=== PATIENT | female | born 1945 | race Caucasian/White ===

== ENCOUNTER 2022-10-09 17:43 | Inpatient (IN) | payer MEDICARE, MEDICAID ==
[2022-10-09] MEDS ORDERED: HumaLOG 300 UNITS/3 ML VIAL SC PRN (21:16)
[2022-10-09] MEDS ORDERED: Dextrose 50% Abboject 50 ML SYRINGE SLOW IVP PRN (21:16)
[2022-10-09] MEDS ORDERED: Glucagon 1 MG/ML KIT IM PRN (21:16)
[2022-10-09] MEDS ORDERED: traMADol HCl 50 MG TAB PO PRN (21:31)
[2022-10-09 22:42] LABS: Bilirubin Negative (Negative); Blood, Urine Trace (Negative); Clarity Cloudy (Clear); Glucose, Urine (Dipstick) Negative (Negative); Ketone, Urine Trace mg/dL (Negative); Leukocyte Large (Negative); Nitrite Positive (Negative); Protein, Urine (Dipstick) Trace mg/dL (Neg-Trace); Urobilinogen 0.2 mg/dL (Less than 2)
[2022-10-09 22:48] LABS: RBC/HPF 0-3 HPF (0-3); WBC/HPF Greater than 50 HPF (0-3)
[2022-10-09 22:49] LABS: Bacteria/HPF 3+ HPF (None Seen); Yeast-Budding 1+ HPF (None Seen); Yeast-Hyphae 2+ HPF (None Seen)
[2022-10-10 05:41] LABS: #Basophils 0.1 thou/uL (0.0-0.2); #Eosinphils 0.3 thou/uL (0.0-0.7); #Monocytes 0.9 thou/uL (0.11-0.59); #Neutrophils 5.5 thou/uL (1.40-6.50); %Basophils 1.5 % (0.0-1.0); %Eosinophils 3.3 % (0.0-10.0); %Lymphocytes 30.6 % (21.0-51.0); %Monocytes 8.7 % (0.0-10.0); %Neutrophils 55.9 % (42.0-75.0); Hemoglobin 11.5 g/dL (12.0-16.0); Mean Corpuscular HGB CONC 32.3 g/dL (32.0-36.0); Mean Corpuscular Hemoglobin 27.1 pg (27.0-31.0); Mean Corpuscular Volume 83.6 fl (78.0-98.0); Mean Platelet Volume 7.4 fL (7.4-10.4); Platelet Count 403 10x3/uL (130-400); RBC Distribution Width 16.1 % (11.5-14.5); Red Blood Cell (RBC) Count 4.23 mill/uL (4.20-5.40); White Blood Cell (WBC) Count 9.9 10x3/uL (4.8-10.8)
[2022-10-10 06:01] LABS: ALT (SGPT) 11 U/L (8-55); AST (SGOT) 16 U/L (5-34); Alkaline Phosphatase 65 U/L (40-110); Anion Gap 12 mmol/L (10-20); BUN (Urea Nitrogen) 6 mg/dL (9.8-20.1); Bilirubin, Total 0.6 mg/dL (0.2-1.2); Calc. Creatinine Clearance 66 mL/min (70-130); Calcium 8.6 mg/dL (7.8-10.44); Carbon Dioxide 28 mmol/L (23-31); Chloride 99 mmol/L (98-107); Estimated GFR 91; Globulin 2.1 g/dL (2.4-3.5); Glucose 119 mg/dL (83-110); Potassium 3.9 mmol/L (3.5-5.1); Protein, Total 5.1 g/dL (5.8-8.1); Sodium 135 mmol/L (136-145)
[2022-10-10] MEDS: metFORMIN 500 MG TAB PO SCH ×2 (08:25→21:58)
[2022-10-10] MEDS: Saccharomyces boulardii 250 MG CAP PO SCH (08:25)
[2022-10-10] MEDS: Potassium Chloride 20 MEQ TAB PO SCH (08:25)
[2022-10-10] MEDS: Lisinopril 10 MG TAB PO SCH (08:25)
[2022-10-10] MEDS: Citalopram 20 MG TAB PO SCH (08:26)
[2022-10-10] MEDS: Lantus 1000 UNITS/10 ML VIAL SC SCH (08:26)
[2022-10-10] MEDS: Mupirocin 2% Ointment 22 GM Tube TOP SCH ×3 (08:26→21:58)
[2022-10-10] MEDS: Sulfameth/Trimethoprim DS 800-160mg TAB PO SCH ×2 (08:26→21:58)
[2022-10-10] MEDS: Aspirin 81 mg Enteric Coated Tablet PO SCH (08:26)
[2022-10-10] MEDS: Spironolactone 25 MG TAB PO SCH (08:30)
[2022-10-10] MEDS: Atorvastatin Calcium 40 MG TAB PO SCH (21:58)
[2022-10-10] MEDS: QUEtiapine 25 MG TAB PO SCH (21:58)
[2022-10-11] MEDS: Lisinopril 10 MG TAB PO SCH (09:25)
[2022-10-11] MEDS: Aspirin 81 mg Enteric Coated Tablet PO SCH (09:25)
[2022-10-11] MEDS: Saccharomyces boulardii 250 MG CAP PO SCH (09:25)
[2022-10-11] MEDS: Spironolactone 25 MG TAB PO SCH (09:25)
[2022-10-11] MEDS: metFORMIN 500 MG TAB PO SCH ×2 (09:25→21:09)
[2022-10-11] MEDS: Sulfameth/Trimethoprim DS 800-160mg TAB PO SCH ×2 (09:26→21:09)
[2022-10-11] MEDS: Potassium Chloride 20 MEQ TAB PO SCH (09:26)
[2022-10-11] MEDS: Citalopram 20 MG TAB PO SCH (09:26)
[2022-10-11] MEDS: Lantus 1000 UNITS/10 ML VIAL SC SCH (09:27)
[2022-10-11] MEDS: Mupirocin 2% Ointment 22 GM Tube TOP SCH ×3 (09:27→21:10)
[2022-10-11] MEDS ORDERED: Lantiseptic Ointment 130 GM JAR TOP PRN (18:14)
[2022-10-11] MEDS: QUEtiapine 25 MG TAB PO SCH (21:09)
[2022-10-11] MEDS: Lantiseptic Ointment 130 GM JAR TOP SCH (21:09)
[2022-10-11] MEDS: Atorvastatin Calcium 40 MG TAB PO SCH (21:09)
[2022-10-12] MEDS: Acetaminophen 500 MG TAB PO PRN (07:56)
[2022-10-12] MEDS: Aspirin 81 mg Enteric Coated Tablet PO SCH (09:33)
[2022-10-12] MEDS: Sulfameth/Trimethoprim DS 800-160mg TAB PO SCH (09:33)
[2022-10-12] MEDS: metFORMIN 500 MG TAB PO SCH ×2 (09:33→20:48)
[2022-10-12] MEDS: Saccharomyces boulardii 250 MG CAP PO SCH (09:35)
[2022-10-12] MEDS: Spironolactone 25 MG TAB PO SCH (09:35)
[2022-10-12] MEDS: Citalopram 20 MG TAB PO SCH (09:35)
[2022-10-12] MEDS: Potassium Chloride 20 MEQ TAB PO SCH (09:36)
[2022-10-12] MEDS: Lisinopril 10 MG TAB PO SCH (09:36)
[2022-10-12] MEDS: Mupirocin 2% Ointment 22 GM Tube TOP SCH ×3 (09:38→20:48)
[2022-10-12] MEDS: Lantiseptic Ointment 130 GM JAR TOP SCH ×2 (09:38→20:49)
[2022-10-12] MEDS: Lantus 1000 UNITS/10 ML VIAL SC SCH (10:16)
[2022-10-12] MEDS ORDERED: Meropenem 1 GM in Sodium Chloride 0.9% 100 ML IVPB SCH (13:30)
[2022-10-12] MEDS: Megestrol Acetate 40 MG TAB PO SCH (20:45)
[2022-10-12] MEDS: QUEtiapine 25 MG TAB PO SCH (20:46)
[2022-10-12] MEDS: Atorvastatin Calcium 40 MG TAB PO SCH (20:47)
[2022-10-12] MEDS: Meropenem 1 GM in Sodium Chloride 0.9% 100 ML IVPB SCH (21:25)
[2022-10-13] MEDS: Meropenem 1 GM in Sodium Chloride 0.9% 100 ML IVPB SCH ×3 (05:45→21:21)
[2022-10-13] MEDS: metFORMIN 500 MG TAB PO SCH ×2 (08:24→21:20)
[2022-10-13] MEDS: Lisinopril 10 MG TAB PO SCH (08:24)
[2022-10-13] MEDS: Spironolactone 25 MG TAB PO SCH (08:24)
[2022-10-13] MEDS: Potassium Chloride 20 MEQ TAB PO SCH (08:24)
[2022-10-13] MEDS: Aspirin 81 mg Enteric Coated Tablet PO SCH (08:25)
[2022-10-13] MEDS: Megestrol Acetate 40 MG TAB PO SCH ×2 (08:25→21:20)
[2022-10-13] MEDS: Saccharomyces boulardii 250 MG CAP PO SCH (08:25)
[2022-10-13] MEDS: Citalopram 20 MG TAB PO SCH (08:25)
[2022-10-13] MEDS: Lantiseptic Ointment 130 GM JAR TOP SCH ×2 (08:25→21:24)
[2022-10-13] MEDS: Mupirocin 2% Ointment 22 GM Tube TOP SCH ×3 (08:26→21:24)
[2022-10-13] MEDS: Atorvastatin Calcium 40 MG TAB PO SCH (21:20)
[2022-10-13] MEDS: QUEtiapine 25 MG TAB PO SCH (21:20)
[2022-10-14] MEDS: Meropenem 1 GM in Sodium Chloride 0.9% 100 ML IVPB SCH ×3 (05:18→21:41)
[2022-10-14] MEDS: Megestrol Acetate 40 MG TAB PO SCH ×2 (08:12→20:12)
[2022-10-14] MEDS: metFORMIN 500 MG TAB PO SCH ×2 (08:12→17:01)
[2022-10-14] MEDS: Potassium Chloride 20 MEQ TAB PO SCH (08:13)
[2022-10-14] MEDS: Lisinopril 10 MG TAB PO SCH (08:13)
[2022-10-14] MEDS: Citalopram 20 MG TAB PO SCH (08:13)
[2022-10-14] MEDS: Spironolactone 25 MG TAB PO SCH (08:13)
[2022-10-14] MEDS: Mupirocin 2% Ointment 22 GM Tube TOP SCH ×3 (08:14→20:13)
[2022-10-14] MEDS: Aspirin 81 mg Enteric Coated Tablet PO SCH (08:14)
[2022-10-14] MEDS: Lantiseptic Ointment 130 GM JAR TOP SCH ×2 (08:14→20:13)
[2022-10-14] MEDS: Saccharomyces boulardii 250 MG CAP PO SCH (08:15)
[2022-10-14] MEDS: QUEtiapine 25 MG TAB PO SCH (20:12)
[2022-10-14] MEDS: Atorvastatin Calcium 40 MG TAB PO SCH (20:12)
[2022-10-15] MEDS: Meropenem 1 GM in Sodium Chloride 0.9% 100 ML IVPB SCH ×3 (05:27→21:42)
[2022-10-15] MEDS: Lisinopril 10 MG TAB PO SCH (08:15)
[2022-10-15] MEDS: Potassium Chloride 20 MEQ TAB PO SCH (08:15)
[2022-10-15] MEDS: Aspirin 81 mg Enteric Coated Tablet PO SCH (08:15)
[2022-10-15] MEDS: metFORMIN 500 MG TAB PO SCH ×2 (08:15→17:04)
[2022-10-15] MEDS: Saccharomyces boulardii 250 MG CAP PO SCH (08:15)
[2022-10-15] MEDS: Citalopram 20 MG TAB PO SCH (08:15)
[2022-10-15] MEDS: Spironolactone 25 MG TAB PO SCH (08:16)
[2022-10-15] MEDS: Lantiseptic Ointment 130 GM JAR TOP SCH ×2 (08:16→19:25)
[2022-10-15] MEDS: Megestrol Acetate 40 MG TAB PO SCH ×2 (08:16→19:24)
[2022-10-15] MEDS: Mupirocin 2% Ointment 22 GM Tube TOP SCH ×3 (08:16→19:25)
[2022-10-15] MEDS: QUEtiapine 25 MG TAB PO SCH (19:24)
[2022-10-15] MEDS: Atorvastatin Calcium 40 MG TAB PO SCH (19:24)
[2022-10-16] MEDS: Meropenem 1 GM in Sodium Chloride 0.9% 100 ML IVPB SCH ×3 (05:21→22:21)
[2022-10-16] MEDS: Citalopram 20 MG TAB PO SCH (08:08)
[2022-10-16] MEDS: Aspirin 81 mg Enteric Coated Tablet PO SCH (08:09)
[2022-10-16] MEDS: Saccharomyces boulardii 250 MG CAP PO SCH (08:09)
[2022-10-16] MEDS: Potassium Chloride 20 MEQ TAB PO SCH (08:09)
[2022-10-16] MEDS: Lisinopril 10 MG TAB PO SCH (08:09)
[2022-10-16] MEDS: Megestrol Acetate 40 MG TAB PO SCH ×2 (08:09→21:41)
[2022-10-16] MEDS: metFORMIN 500 MG TAB PO SCH ×2 (08:09→21:42)
[2022-10-16] MEDS: Spironolactone 25 MG TAB PO SCH (08:09)
[2022-10-16] MEDS: Lantiseptic Ointment 130 GM JAR TOP SCH ×2 (08:09→21:44)
[2022-10-16] MEDS: Mupirocin 2% Ointment 22 GM Tube TOP SCH ×3 (08:10→21:44)
[2022-10-16] MEDS: Ondansetron ODT 4 MG TAB PO PRN (10:38)
[2022-10-16] MEDS: QUEtiapine 25 MG TAB PO SCH (21:41)
[2022-10-16] MEDS: Atorvastatin Calcium 40 MG TAB PO SCH (21:41)
[2022-10-17] MEDS: Meropenem 1 GM in Sodium Chloride 0.9% 100 ML IVPB SCH ×3 (05:37→21:22)
[2022-10-17] MEDS: Lisinopril 10 MG TAB PO SCH (10:04)
[2022-10-17] MEDS: Megestrol Acetate 40 MG TAB PO SCH ×2 (10:04→21:18)
[2022-10-17] MEDS: Spironolactone 25 MG TAB PO SCH (10:05)
[2022-10-17] MEDS: Saccharomyces boulardii 250 MG CAP PO SCH (10:05)
[2022-10-17] MEDS: metFORMIN 500 MG TAB PO SCH ×3 (10:05→21:34)
[2022-10-17] MEDS: Potassium Chloride 20 MEQ TAB PO SCH (10:06)
[2022-10-17] MEDS: Citalopram 20 MG TAB PO SCH (10:06)
[2022-10-17] MEDS: Lantiseptic Ointment 130 GM JAR TOP SCH ×2 (10:07→21:18)
[2022-10-17] MEDS: Aspirin 81 mg Enteric Coated Tablet PO SCH (10:07)
[2022-10-17] MEDS: Mupirocin 2% Ointment 22 GM Tube TOP SCH ×3 (10:07→21:18)
[2022-10-17] MEDS: Acetaminophen 500 MG TAB PO PRN (10:08)
[2022-10-17] MEDS: Ondansetron ODT 4 MG TAB PO PRN (14:52)
[2022-10-17] MEDS: Atorvastatin Calcium 40 MG TAB PO SCH (21:18)
[2022-10-17] MEDS: QUEtiapine 25 MG TAB PO SCH (21:18)
[2022-10-18] MEDS: Meropenem 1 GM in Sodium Chloride 0.9% 100 ML IVPB SCH (05:26)
[2022-10-18 05:31] LABS: Hemoglobin 11.5 g/dL (12.0-16.0); Platelet Count 396 10x3/uL (130-400)
[2022-10-18] MEDS: metFORMIN 500 MG TAB PO SCH ×3 (08:12→21:58)
[2022-10-18] MEDS: Lisinopril 10 MG TAB PO SCH ×2 (08:12→08:26)
[2022-10-18] MEDS: Saccharomyces boulardii 250 MG CAP PO SCH ×2 (08:12→10:24)
[2022-10-18] MEDS: Potassium Chloride 20 MEQ TAB PO SCH ×2 (08:12→10:23)
[2022-10-18] MEDS: Megestrol Acetate 40 MG TAB PO SCH ×2 (08:14→09:29)
[2022-10-18] MEDS: Aspirin 81 mg Enteric Coated Tablet PO SCH (08:14)
[2022-10-18] MEDS: Citalopram 20 MG TAB PO SCH (08:14)
[2022-10-18] MEDS: Spironolactone 25 MG TAB PO SCH (08:14)
[2022-10-18] MEDS: Lantiseptic Ointment 130 GM JAR TOP SCH ×2 (08:16→21:57)
[2022-10-18] MEDS: Mupirocin 2% Ointment 22 GM Tube TOP SCH ×3 (08:16→22:02)
[2022-10-18] MEDS ORDERED: Loperamide HCl 2 MG CAP PO SCH (10:15)
[2022-10-18] MEDS ORDERED: Megestrol Acetate 400 MG/10 ML UDCUP PO SCH (10:15)
[2022-10-18] MEDS: Ondansetron ODT 4 MG TAB PO PRN (10:25)
[2022-10-18] MEDS: QUEtiapine 25 MG TAB PO SCH (21:58)
[2022-10-18] MEDS: Atorvastatin Calcium 40 MG TAB PO SCH (21:58)
[2022-10-18] MEDS: Megestrol Acetate 400 MG/10 ML UDCUP PO SCH (22:01)
[2022-10-19] MEDS: Aspirin 81 mg Enteric Coated Tablet PO SCH (08:17)
[2022-10-19] MEDS: Megestrol Acetate 400 MG/10 ML UDCUP PO SCH ×2 (08:17→20:33)
[2022-10-19] MEDS: metFORMIN 500 MG TAB PO SCH ×2 (08:17→20:33)
[2022-10-19] MEDS: Spironolactone 25 MG TAB PO SCH (08:17)
[2022-10-19] MEDS: Potassium Chloride 20 MEQ TAB PO SCH (08:17)
[2022-10-19] MEDS: Lisinopril 10 MG TAB PO SCH (08:18)
[2022-10-19] MEDS: Citalopram 20 MG TAB PO SCH (08:19)
[2022-10-19] MEDS: Ondansetron ODT 4 MG TAB PO PRN (08:19)
[2022-10-19] MEDS: Mupirocin 2% Ointment 22 GM Tube TOP SCH ×3 (08:20→20:38)
[2022-10-19] MEDS: Lantiseptic Ointment 130 GM JAR TOP SCH ×2 (08:22→20:34)
[2022-10-19] MEDS: Saccharomyces boulardii 250 MG CAP PO SCH (08:34)
[2022-10-19] MEDS: Atorvastatin Calcium 40 MG TAB PO SCH (20:34)
[2022-10-19] MEDS: QUEtiapine 25 MG TAB PO SCH (20:34)
[2022-10-20] MEDS: Saccharomyces boulardii 250 MG CAP PO SCH (08:48)
[2022-10-20] MEDS: Megestrol Acetate 400 MG/10 ML UDCUP PO SCH ×2 (08:48→20:42)
[2022-10-20] MEDS: Potassium Chloride 20 MEQ TAB PO SCH (08:49)
[2022-10-20] MEDS: Spironolactone 25 MG TAB PO SCH (08:50)
[2022-10-20] MEDS: metFORMIN 500 MG TAB PO SCH ×2 (08:55→20:42)
[2022-10-20] MEDS: Ondansetron ODT 4 MG TAB PO PRN (08:55)
[2022-10-20] MEDS: Aspirin 81 mg Enteric Coated Tablet PO SCH (08:56)
[2022-10-20] MEDS: Citalopram 20 MG TAB PO SCH (08:57)
[2022-10-20] MEDS: Mupirocin 2% Ointment 22 GM Tube TOP SCH ×3 (08:58→20:44)
[2022-10-20] MEDS: Lantiseptic Ointment 130 GM JAR TOP SCH ×2 (08:58→20:43)
[2022-10-20] MEDS: Lisinopril 10 MG TAB PO SCH (08:59)
[2022-10-20] MEDS: QUEtiapine 25 MG TAB PO SCH (20:42)
[2022-10-20] MEDS: Atorvastatin Calcium 40 MG TAB PO SCH (20:42)
[2022-10-21] MEDS: Citalopram 20 MG TAB PO SCH (09:12)
[2022-10-21] MEDS: Spironolactone 25 MG TAB PO SCH (09:13)
[2022-10-21] MEDS: Lisinopril 10 MG TAB PO SCH (09:13)
[2022-10-21] MEDS: metFORMIN 500 MG TAB PO SCH ×2 (09:13→20:43)
[2022-10-21] MEDS: Saccharomyces boulardii 250 MG CAP PO SCH (09:13)
[2022-10-21] MEDS: Potassium Chloride 20 MEQ TAB PO SCH (09:13)
[2022-10-21] MEDS: Aspirin 81 mg Enteric Coated Tablet PO SCH (09:13)
[2022-10-21] MEDS: Mupirocin 2% Ointment 22 GM Tube TOP SCH ×3 (09:14→20:44)
[2022-10-21] MEDS: Megestrol Acetate 400 MG/10 ML UDCUP PO SCH ×2 (09:14→20:43)
[2022-10-21] MEDS: Lantiseptic Ointment 130 GM JAR TOP SCH ×2 (09:14→20:45)
[2022-10-21] MEDS: Atorvastatin Calcium 40 MG TAB PO SCH (20:43)
[2022-10-21] MEDS: QUEtiapine 25 MG TAB PO SCH (20:43)
[2022-10-22] MEDS: Saccharomyces boulardii 250 MG CAP PO SCH (09:22)
[2022-10-22] MEDS: metFORMIN 500 MG TAB PO SCH ×2 (09:22→20:26)
[2022-10-22] MEDS: Megestrol Acetate 400 MG/10 ML UDCUP PO SCH ×2 (09:22→20:25)
[2022-10-22] MEDS: Aspirin 81 mg Enteric Coated Tablet PO SCH (09:22)
[2022-10-22] MEDS: Spironolactone 25 MG TAB PO SCH (09:22)
[2022-10-22] MEDS: Citalopram 20 MG TAB PO SCH (09:22)
[2022-10-22] MEDS: Acetaminophen 500 MG TAB PO PRN (09:23)
[2022-10-22] MEDS: Potassium Chloride 20 MEQ TAB PO SCH (09:23)
[2022-10-22] MEDS: Lisinopril 10 MG TAB PO SCH (09:23)
[2022-10-22] MEDS: Mupirocin 2% Ointment 22 GM Tube TOP SCH ×3 (09:24→20:27)
[2022-10-22] MEDS: Lantiseptic Ointment 130 GM JAR TOP SCH ×2 (09:31→20:27)
[2022-10-22] MEDS: QUEtiapine 25 MG TAB PO SCH (20:26)
[2022-10-22] MEDS: Atorvastatin Calcium 40 MG TAB PO SCH (20:26)
[2022-10-23] MEDS: Aspirin 81 mg Enteric Coated Tablet PO SCH (09:07)
[2022-10-23] MEDS: Citalopram 20 MG TAB PO SCH (09:07)
[2022-10-23] MEDS: Spironolactone 25 MG TAB PO SCH (09:07)
[2022-10-23] MEDS: Megestrol Acetate 400 MG/10 ML UDCUP PO SCH ×2 (09:07→20:51)
[2022-10-23] MEDS: Lantiseptic Ointment 130 GM JAR TOP SCH ×2 (09:08→20:52)
[2022-10-23] MEDS: Saccharomyces boulardii 250 MG CAP PO SCH (09:08)
[2022-10-23] MEDS: Potassium Chloride 20 MEQ TAB PO SCH (09:08)
[2022-10-23] MEDS: metFORMIN 500 MG TAB PO SCH ×2 (09:08→20:51)
[2022-10-23] MEDS: Lisinopril 10 MG TAB PO SCH (09:10)
[2022-10-23] MEDS: Mupirocin 2% Ointment 22 GM Tube TOP SCH (09:10)
[2022-10-23] MEDS ORDERED: Loperamide HCl 2 MG CAP PO PRN (13:10)
[2022-10-23] MEDS: QUEtiapine 25 MG TAB PO SCH (20:51)
[2022-10-23] MEDS: Atorvastatin Calcium 40 MG TAB PO SCH (20:51)
[2022-10-24] MEDS: Spironolactone 25 MG TAB PO SCH (08:10)
[2022-10-24] MEDS: Potassium Chloride 20 MEQ TAB PO SCH (08:11)
[2022-10-24] MEDS: Aspirin 81 mg Enteric Coated Tablet PO SCH (08:11)
[2022-10-24] MEDS: Saccharomyces boulardii 250 MG CAP PO SCH (08:11)
[2022-10-24] MEDS: metFORMIN 500 MG TAB PO SCH ×2 (08:11→20:49)
[2022-10-24] MEDS: Megestrol Acetate 400 MG/10 ML UDCUP PO SCH ×2 (08:11→20:49)
[2022-10-24] MEDS: Citalopram 20 MG TAB PO SCH (08:11)
[2022-10-24] MEDS: Lisinopril 10 MG TAB PO SCH (08:12)
[2022-10-24] MEDS: Lantiseptic Ointment 130 GM JAR TOP SCH ×2 (08:12→20:50)
[2022-10-24] MEDS: QUEtiapine 25 MG TAB PO SCH (20:49)
[2022-10-24] MEDS: Atorvastatin Calcium 40 MG TAB PO SCH (20:49)
[2022-10-25] MEDS: Megestrol Acetate 400 MG/10 ML UDCUP PO SCH ×2 (10:03→20:40)
[2022-10-25] MEDS: Aspirin 81 mg Enteric Coated Tablet PO SCH (10:03)
[2022-10-25] MEDS: Potassium Chloride 20 MEQ TAB PO SCH (10:03)
[2022-10-25] MEDS: metFORMIN 500 MG TAB PO SCH ×2 (10:03→20:40)
[2022-10-25] MEDS: Spironolactone 25 MG TAB PO SCH (10:04)
[2022-10-25] MEDS: Lisinopril 10 MG TAB PO SCH (10:04)
[2022-10-25] MEDS: Saccharomyces boulardii 250 MG CAP PO SCH (10:04)
[2022-10-25] MEDS: Citalopram 20 MG TAB PO SCH (10:04)
[2022-10-25] MEDS: Lantiseptic Ointment 130 GM JAR TOP SCH ×2 (10:05→20:40)
[2022-10-25] MEDS: QUEtiapine 25 MG TAB PO SCH (20:40)
[2022-10-25] MEDS: Atorvastatin Calcium 40 MG TAB PO SCH (20:40)
[2022-10-26 09:08] VITALS: BMI 20.1
[2022-10-26] MEDS: Aspirin 81 mg Enteric Coated Tablet PO SCH (09:55)
[2022-10-26] MEDS: Megestrol Acetate 400 MG/10 ML UDCUP PO SCH ×2 (09:56→20:52)
[2022-10-26] MEDS: Saccharomyces boulardii 250 MG CAP PO SCH (09:56)
[2022-10-26] MEDS: Potassium Chloride 20 MEQ TAB PO SCH (09:56)
[2022-10-26] MEDS: metFORMIN 500 MG TAB PO SCH ×2 (09:56→20:52)
[2022-10-26] MEDS: Lantiseptic Ointment 130 GM JAR TOP SCH ×2 (09:57→20:52)
[2022-10-26] MEDS: Spironolactone 25 MG TAB PO SCH (10:02)
[2022-10-26] MEDS: Citalopram 20 MG TAB PO SCH (10:02)
[2022-10-26] MEDS: Lisinopril 10 MG TAB PO SCH (10:03)
[2022-10-26] MEDS: QUEtiapine 25 MG TAB PO SCH (20:52)
[2022-10-26] MEDS: Atorvastatin Calcium 40 MG TAB PO SCH (20:52)
[2022-10-27 05:26] LABS: Hemoglobin 10.4 g/dL (12.0-16.0); Platelet Count 440 10x3/uL (130-400)
[2022-10-27 07:20] VITALS: TEMP 98
[2022-10-27] MEDS: Citalopram 20 MG TAB PO SCH (08:29)
[2022-10-27] MEDS: Aspirin 81 mg Enteric Coated Tablet PO SCH (08:29)
[2022-10-27] MEDS: Potassium Chloride 20 MEQ TAB PO SCH (08:30)
[2022-10-27] MEDS: Spironolactone 25 MG TAB PO SCH (08:30)
[2022-10-27] MEDS: Saccharomyces boulardii 250 MG CAP PO SCH (08:30)
[2022-10-27] MEDS: Lisinopril 10 MG TAB PO SCH (08:31)
[2022-10-27] MEDS: Megestrol Acetate 400 MG/10 ML UDCUP PO SCH (08:31)
[2022-10-27] MEDS: metFORMIN 500 MG TAB PO SCH (08:33)
[2022-10-27] MEDS: Lantiseptic Ointment 130 GM JAR TOP SCH (08:34)
[2022-10-27 08:38] VITALS: BP 124/80
== END 2022-10-27 14:15 | DRG 948 ==
LOC: MADMS 20:33
PROVIDERS: ADMIT Family Medicine; ATTEND Family Medicine
DX: R53.1 Weakness (principal); E44.0 Moderate protein-calorie malnutrition; T83.510A Infection and inflammatory reaction due to cystostomy catheter, initial encounter; N39.0 Urinary tract infection, site not specified; I10 Essential (primary) hypertension; F03.90 Unspecified dementia, unspecified severity, without behavioral disturbance, psychotic disturbance, mood disturbance, and anxiety; Z96.659 Presence of unspecified artificial knee joint; D12.8 Benign neoplasm of rectum; N20.0 Calculus of kidney; E87.6 Hypokalemia; Y83.8 Other surgical procedures as the cause of abnormal reaction of the patient, or of later complication, without mention of misadventure at the time of the procedure; E11.649 Type 2 diabetes mellitus with hypoglycemia without coma; K52.9 Noninfective gastroenteritis and colitis, unspecified; Z98.51 Tubal ligation status
CPT/HCPCS: 36415; 36416; 80053; 81001; 82565; 85014; 85018; 85025; 85049; 87077; 87086; 87186; J1650; J1815; J2185; J3490; Q0162; S0179

== ENCOUNTER 2023-03-05 19:09 | Emergency (ER) | payer MEDICARE, MEDICAID ==
[2023-03-05 19:53] LABS: Bilirubin Small (Negative); Blood, Urine Moderate (Negative); Clarity Turbid (Clear); Glucose, Urine (Dipstick) Negative (Negative); Ketone, Urine Trace mg/dL (Negative); Leukocyte Large (Negative); Nitrite Positive (Negative); Protein, Urine (Dipstick) 100 mg/dL (Neg-Trace); Specific Gravity, Urine 1.025 (1.005-1.030); Urobilinogen 0.2 mg/dL (Less than 2); pH, Urine 5.5 (5.0-9.0)
[2023-03-05 19:58] LABS: Bacteria/HPF 3+ HPF (None Seen); CAUTI Indications for Culture Alt mental st,lethar; WBC/HPF Greater than 50 HPF (0-3); Yeast-Budding 2+ HPF (None Seen); Yeast-Hyphae 3+ HPF (None Seen)
[2023-03-05 19:59] LABS: Calcium Oxalate Crystals 2+ HPF (None Seen)
[2023-03-05 20:00] LABS: Urine Culture Reflex Yes Yes
[2023-03-05 20:18] LABS: #Basophils 0.2 thou/uL (0.0-0.2); #Eosinphils 0.1 thou/uL (0.0-0.7); #Lymphocytes 3.7 thou/uL (1.20-3.40); #Monocytes 1.8 thou/uL (0.11-0.59); #Neutrophils 9.6 thou/uL (1.40-6.50); %Basophils 1.2 % (0.0-1.0); %Eosinophils 0.6 % (0.0-10.0); %Lymphocytes 24.4 % (21.0-51.0); %Monocytes 11.5 % (0.0-10.0); %Neutrophils 62.3 % (42.0-75.0); Hematocrit 25.1 % (36.0-47.0); Hemoglobin 8.4 g/dL (12.0-16.0); Mean Corpuscular HGB CONC 33.4 g/dL (32.0-36.0); Mean Corpuscular Hemoglobin 32.3 pg (27.0-31.0); Mean Corpuscular Volume 96.9 fl (78.0-98.0); Mean Platelet Volume 6.6 fL (7.4-10.4); Platelet Count 442 10x3/uL (130-400); RBC Distribution Width 13.7 % (11.5-14.5); Red Blood Cell (RBC) Count 2.59 mill/uL (4.20-5.40); White Blood Cell (WBC) Count 15.3 10x3/uL (4.8-10.8)
[2023-03-05] MEDS ORDERED: cefTRIAXone (ROCEPHIN) 2 GM VIAL ONE (20:33)
[2023-03-05] MEDS ORDERED: Sodium Chloride 0.9% 100 ML ONE (20:34)
[2023-03-05 20:39] LABS: ALT (SGPT) 12 U/L (8-55); AST (SGOT) 19 U/L (5-34); Albumin 2.1 g/dL (3.4-4.8); Alkaline Phosphatase 85 U/L (40-110); Anion Gap 20 mmol/L (10-20); BUN (Urea Nitrogen) 17 mg/dL (9.8-20.1); Bilirubin, Total 0.3 mg/dL (0.2-1.2); Calc. Creatinine Clearance 0 mL/min (70-130); Carbon Dioxide 18 mmol/L (23-31); Chloride 107 mmol/L (98-107); Estimated GFR 62; Globulin 2.1 g/dL (2.4-3.5); Glucose 136 mg/dL (83-110); Protein, Total 4.2 g/dL (5.8-8.1); Sodium 143 mmol/L (136-145); Troponin I 0.011 ng/mL (< 0.028)
[2023-03-05 20:42] LABS: Calcium 6.9 mg/dL (7.8-10.44); Potassium 2.4 mmol/L (3.5-5.1)
[2023-03-05 20:52] LABS: SARS-CoV-2 NAA Rapid Test Not Detected (NotDetected)
[2023-03-05] MEDS ORDERED: Calcium Gluc 4.6 MEQ/10 ML (100 MG/ML) ONE ×2 (21:00→21:04)
[2023-03-05] MEDS ORDERED: Magnesium 2 GM/50 ML BAG (IN WATER) ONE (21:00)
[2023-03-05] MEDS ORDERED: Sodium Chloride 0.9% 0 ML ONE (21:00)
[2023-03-05] MEDS ORDERED: Potassium Chloride 20 MEQ/100 ML PREMIX BAG ONE (21:00)
[2023-03-05] MEDS ORDERED: NS 0.9% w/ 20 MEQ KCL 1,000 ML ONE (21:06)
[2023-03-05] MEDS ORDERED: Sodium Chloride 0.9% 500 ML ONE (21:54)
== END 2023-03-05 22:33 | disposition short-term general hospital (02) ==
LOC: MADERS 19:09
DX: A41.9 Sepsis, unspecified organism (principal); N39.0 Urinary tract infection, site not specified; E87.6 Hypokalemia; E83.51 Hypocalcemia; E83.42 Hypomagnesemia; I10 Essential (primary) hypertension; E11.9 Type 2 diabetes mellitus without complications; D64.9 Anemia, unspecified; F03.90 Unspecified dementia, unspecified severity, without behavioral disturbance, psychotic disturbance, mood disturbance, and anxiety; Z20.822 Contact with and (suspected) exposure to COVID-19; Z79.4 Long term (current) use of insulin; Z86.73 Personal history of transient ischemic attack (TIA), and cerebral infarction without residual deficits
CPT/HCPCS: 70450; 71045; 80053; 81001; 83605; 83735; 83880; 84484; 85025; 87040; 87077; 87086; 87186; 87804 ×2; 87807; 93005; 96365; 96367; 96375; 99285; J0612; U0002; 36415; J0696; J3475; J3480; J7030; J7050